=== PATIENT | female | born 1950 | race Caucasian/White ===

== ENCOUNTER 2020-08-03 14:54 | Inpatient (IN) | payer OTHER ==
[~2020-08-03] VITALS: Ht 149.9 cm; Wt 53.3 kg
[2020-08-03 14:56] VITALS: BP 126/57
[2020-08-03 15:29] LABS: HEMATOCRIT 52.3 % (37.0-47.0); HEMOGLOBIN 17.4 gm/dL (12.0-15.0); MCHC 33.3 g/dL (28.0-37.0); RBC 5.29 mil/uL (4.20-5.00); RDW 12.9 % (10.5-14.5); WBC 20.4 thou/uL (4.0-11.0)
[2020-08-03 16:06] LABS: ABSOLUTE NEUTROPHILS 18.4 thou/uL (1.4-8.2)
[2020-08-03 16:07] LABS: ANISOCYTOSIS 1+; LARGE PLATELETS OCCASIONAL; PLATELET COUNT 181 thou/uL (150-400)
[2020-08-03 16:41] LABS: ALBUMIN 4.3 g/dL (3.4-5.0); CALCIUM 10.7 mg/dL (8.5-10.1); CREATININE 0.9 mg/dL (0.6-1.0); POTASSIUM 3.1 mmol/L (3.5-5.1)
[2020-08-03 17:14] LABS: URINE BILIRUBIN 1+ (Negative); URINE BLOOD 3+ (Negative); URINE CLARITY SL CLOUDY; URINE COLOR YELLOW; URINE GLUCOSE-RANDOM* NEGATIVE (Negative); URINE KETONES 3+ (Negative); URINE LEUKOCYTES-REFLEX TRACE (Negative); URINE NITRITE-REFLEX NEGATIVE (Negative); URINE PROTEIN (DIPSTICK) 3+ (Negative); URINE SPECIFIC GRAVITY >= 1.030 (1.005-1.035); URINE UROBILINOGEN 0.2 E.U./dl (0.2-1.0)
[2020-08-03 17:15] LABS: ICTOTEST (BILI CONFIRMATORY) Negative (Negative)
[2020-08-03 17:25] LABS: BACTERIA-REFLEX 1-9 Few /HPF (None Seen); CASTS None Seen /LPF (None Seen); CRYSTALS None Seen /LPF (None Seen); SQUAMOUS 0-3 Few /LPF (0-3); URINE RBC 3-10 Few /HPF (0-2); URINE WBC-REFLEX 0-5 Rare /HPF (0-5)
[2020-08-03 17:56] LABS: HCO3 7.1 mmol/L (22.0-26.0); PO2 88.8 mmHg (80.0-100.0); sO2 95.7 % (92.0-98.0)
[2020-08-03 17:57] LABS: PCO2 16.5 mmHg (35.0-45.0); pH 7.251 (7.360-7.450)
--- NOTE | 2020-08-03 18:09 | NUR ---
SPOUSE CALLED AND STATED THAT PT DID NOT HAVE A FALL TODAY. HE STATES LAST FALL WAS 2 DAYS. SPOUSE STATED THAT PT WAS NOTABLY WEAKER WITH SOME SLURRED SPEECH TODAY. HE ALSO STATED THAT PT DOES DRINK 2 STRONG VODKA DRINKS EVERY DAY AND HAS POOR APPETITE.
[2020-08-04] VITALS (9 sets, daily range): BP systolic 115–149; BP diastolic 49–82
[2020-08-04 06:37] LABS: HEMATOCRIT 46.4 % (37.0-47.0); MCH 32.7 pg (26.0-34.0); MCHC 32.5 g/dL (28.0-37.0); MCV 100.6 fL (80.0-100.0); RBC 4.61 mil/uL (4.20-5.00); RDW 12.5 % (10.5-14.5); WBC 15.5 thou/uL (4.0-11.0)
[2020-08-04 06:47] LABS: HEMOGLOBIN 15.1 gm/dL (12.0-15.0)
[2020-08-04 06:52] LABS: ALBUMIN 3.2 g/dL (3.4-5.0); CALCIUM 9.3 mg/dL (8.5-10.1); CREATININE 0.9 mg/dL (0.6-1.0); POTASSIUM 3.1 mmol/L (3.5-5.1); TOTAL BILIRUBIN 0.8 mg/dL (0.2-1.0); TOTAL PROTEIN 6.2 g/dL (6.4-8.2)
--- NOTE | 2020-08-04 16:33 | 2DMMODE ---
[facility] [place] [address] 2 D/M-MODE ECHOCARDIOGRAM Name: IRIS BRADFORD Room #: 219-P ADM IN M.R.#: [id number] Admission: 08/03/20 Attend Phys: Alexandro Knight MD Discharge: Date of : 54 Report #: [id number] THIS REPORT FOR: cc: DELL - No family physician/PCP FAM - No family physician/PCP Alex Huang MD [facility] ~ APPROVED REPORT Study performed: 08/04/2020 11:16:19 EXAM: Comprehensive 2D, Doppler, and color-flow Echocardiogram Patient Location: ER BSA: 1.48 HR: 115 bpm Rhythm: Tachycardia Other Information Study Quality: Technically Difficult 2D Dimensions RVDd: 25.05 mm IVSd: 12.19 (7-11mm) LVOT Diam: 20.04 (18-24mm) LVDd: 31.52 mm PWd: 11.87 (7-11mm) Ascending Ao: 32.51 (22-36mm) LVDs: 27.66 (25-40mm) Left Atrium: 37.74 (27-40mm) Aortic Root: 28.02 mm LV Single Plane 4CH: 43.35 % LV Single Plane 2CH: 48.49 % Volumes Left Atrial Volume (Systole) Single Plane 4CH: 31.35 mL Single Plane 2CH: 22.67 mL Aortic Valve AoV Peak Sabas.: 1.45 m/s AO Peak Gr.: 9.30 mmHg LVOT Max P.60 mmHg LVOT Max V: 1.18 m/s REID Vmax: 2.56 cm2 Mitral Valve E/A Ratio: 1.[address] [facility] [place] [address] [place] [address] 2 D/M-MODE ECHOCARDIOGRAM Name: IRIS BRADFORD Room #: 219-P [facility] IN [facility].#: [id number] Admission: 08/03/20 Attend Phys: Alexandro Knight MD Discharge: Date of : 54 Report #: [id number] MV Decel. Time: 159.75 ms MV E Max Sabas.: 0.90 m/s MV A Sabas.: 0.80 m/s MV PHT: 46.33 ms Pulmonary Valve PV Peak Sabas.: 1.06 m/s PV Peak Gr.: 4.47 mmHg Pulmonary Vein P Vein S: 0.57 m/s P Vein A: 0.54 m/s P Vein D: 0.39 m/s P Vein A Dur.: 96.9 msec P Vein S/D Ratio: 1.46 Tricuspid Valve TR Peak Sabas.: 2.74 m/s TR Peak Gr.: 29.97 mmHg Left Ventricle The left ventricle is normal size. Mild concentric left ventricular hypertrophy. Left ventricular systolic function is mildly decreased. LVEF is 55%. Right Ventricle The right ventricle is normal size. The right ventricular systolic function is normal. Atria The left atrium size is normal. The right atrium size is normal. Aortic Valve The aortic valve is normal in structure. Mild aortic regurgitation. There is no aortic valvular stenosis. Mitral Valve The mitral valve is normal in structure. There is no mitral valve regurgitation noted. No evidence of mitral valve stenosis. Tricuspid Valve The tricuspid valve is normal in structure. Trace to mild tricuspid regurgitation. Estimated PAP 35 mmHg. Pulmonic Valve The pulmonary valve is normal in structure. Trace pulmonic regurgitation. [facility] [place] [address] [place] [address] 2 D/M-MODE ECHOCARDIOGRAM Name: IRIS BRADFORD Room #: 219-P ADM IN M.R.#: [id number] Admission: 08/03/20 Attend Phys: Alexandro Knight MD Discharge: Date of : 54 Report #: [id number] Great Vessels The aortic root is normal in size. IVC is normal in size and collapses >50% with inspiration. Pericardium There is no pericardial effusion. <Conclusion> The left ventricle is normal size. Mild concentric left ventricular hypertrophy. LVEF is 55%. The right ventricle is normal size. The left atrium size is normal. The aortic valve is normal in structure. Mild aortic regurgitation. There is no mitral valve regurgitation noted. Trace to mild tricuspid regurgitation. Estimated PAP 35 mmHg. The aortic root is normal in size. There is no pericardial effusion. <ELECTRONICALLY SIGNED> By: Alex Huang MD, FAC 08/04/20 [id number] Alex Huang MD, FAC /INF
--- NOTE | 2020-08-04 19:12 | NUR ---
PATEINT ARRIVED FROM ED, ALERT AND ORIENTED. ADMISON PROCESS COMPLETED WITH HELP OF HER . PATIENT BLIND, HER MOUTH IS DRY AND OLD BLOOD ALL OVER THE TEETH, TONGUE AND LIPS. MOUTH CARE PROVIDED. AND WILL CONTINUE WITH POC.
[2020-08-05] VITALS (8 sets, daily range): BP systolic 138–145; BP diastolic 53–861
[2020-08-05 03:53] LABS: ALBUMIN 2.5 g/dL (3.4-5.0); CALCIUM 8.8 mg/dL (8.5-10.1); CREATININE 0.7 mg/dL (0.6-1.0); PHOSPHORUS 0.7 mg/dL (2.6-4.7)
[2020-08-05 04:00] LABS: POTASSIUM 2.1 mmol/L (3.5-5.1)
[2020-08-05 09:27] LABS: HEMATOCRIT 40.1 % (37.0-47.0); HEMOGLOBIN 13.8 gm/dL (12.0-15.0); MCHC 34.3 g/dL (28.0-37.0); MCV 96.2 fL (80.0-100.0); RBC 4.17 mil/uL (4.20-5.00); RDW 12.5 % (10.5-14.5); WBC 9.9 thou/uL (4.0-11.0)
[2020-08-05 13:22] LABS: CALCIUM 9.1 mg/dL (8.5-10.1); CREATININE 0.7 mg/dL (0.6-1.0)
[2020-08-05 13:25] LABS: POTASSIUM 3.3 mmol/L (3.5-5.1)
--- NOTE | 2020-08-05 19:26 | NUR ---
PT CARE ASSUMED AT 0700. ASSESSMENTS CHARTED. MEDICATIONS CHARTED. RAC IV. LFA IV, PULLED BY PT. PT IS BLIND AND CONFUSED. MRI TOMORROW FOR L1 FX. PULLED RAC IV, LEADS AND GOWN AT SHIFT CHANGE. LEADS PLACED ON PT'S BACK. PILLS CRUSHED IN APPLESAUCE.
[2020-08-06 03:44] LABS: ALBUMIN 2.9 g/dL (3.4-5.0); CALCIUM 9.3 mg/dL (8.5-10.1); CREATININE 0.6 mg/dL (0.6-1.0); PHOSPHORUS 0.5 mg/dL (2.6-4.7)
[2020-08-06 03:46] LABS: POTASSIUM 2.8 mmol/L (3.5-5.1)
[2020-08-06 05:57] VITALS: BP 148/87
--- NOTE | 2020-08-06 07:20 | EKG ---
[address] [place] [address] ELECTROCARDIOGRAM REPORT Name: IRIS BRADFORD Room #: 219-P ADM IN M.R.#: [id number] Admission: 08/03/20 Attend Phys: Alexandro Knight MD Discharge: Date of : 54 Report #: [id number] [facility] ED Test Date: 2020-08-03 Test Time: 15:00:04 Pat Name: IRIS BRADFORD Department: Room: 219 Gender: F [employer] Professor: MAE : 1950 Requested By: Kalpesh Dia Order Number: [id number] MD: Jonathan Haile Measurements Intervals [place] Rate: 104 P: 38 IL: 140 QRS: -21 QRSD: 94 T: 90 QT: 367 QTc: 483 Interpretive Statements Sinus tachycardia Borderline left axis deviation No previous ECG available for comparison Electronically Signed On 08-06-2020 7:19:54 TOLL TICKET CLERK by Jonathan Haile [email or web address] <ELECTRONICALLY SIGNED> By: Jonathan Haile MD, [facility] 08/06/20 0719 1500 [facility] Jonathan Haile MD, FACC /EPI
--- NOTE | 2020-08-06 07:21 | EKG ---
[place] [address] [facility] [place] [place] [address] ELECTROCARDIOGRAM REPORT Name: IRIS BRADFORD Room #: 219-P ADM IN M.R.#: [id number] Admission: 08/03/20 Attend Phys: Alexandro Knight MD Discharge: Date of : 54 Report #: [id number] [facility] ED Test Date: 2020-08-03 Test Time: 16:09:54 Pat Name: IRIS BRADFORD Department: Room: 219 Gender: F Patient Portal Representative: karyn : 1950 Requested By: Kalpesh Dia Order Number: [id number] MD: Jonathan Haile Measurements Intervals [place] Rate: 91 P: 1 UT: 136 QRS: -25 QRSD: 88 T: 115 QT: 387 QTc: 477 Interpretive Statements Sinus rhythm Occasional atrial premature complexes Borderline left axis deviation Nonspecific T abnormalities, lateral leads Compared to ECG 08/03/2020 15:00:04 No significant changes found Electronically Signed On 08-06-2020 7:20:59 MAIL OFFICER by Jonathan Haile [email or web address] <ELECTRONICALLY SIGNED> By: Jonathan Haile MD, [facility] 08/06/2020 1609 160 Jonathan Haile MD, [facility] /EPI
[2020-08-06 08:00] VITALS: BP 126/68
--- NOTE | 2020-08-06 09:09 | NUR ---
ASSESSMENTS CHARTED, MEDS CHARTED GIVEN. PATIENT RESTING IN BED DURING SHIFT. C/O PAIN ONLY WHEN MOVED. POTASSIUM CRITICAL LOW THIS MORNING. REPLACEMENT POTASSIUM GIVEN CHARTED. PATIENT PULLING AND PICKING AT MEDICAL EQUIPMENT, PULLED OUT TWO IV'S AND DISMANTLED HER MORGAN CATH DURING THE SHIFT. FALL PRECAUTIONS IN PLACE DURING SHIFT.
[2020-08-06 11:30] VITALS: BP 151/90
[2020-08-06 11:36] LABS: INR 1.1; PROTIME 10.8 Seconds (9.3-11.4)
[2020-08-06 15:15] VITALS: BP 116/93
[2020-08-07 04:00] VITALS: BP 132/71
[2020-08-07 05:24] LABS: CALCIUM 8.5 mg/dL (8.5-10.1); CREATININE 0.7 mg/dL (0.6-1.0)
[2020-08-07 06:32] LABS: POTASSIUM 2.4 mmol/L (3.5-5.1)
[2020-08-07 07:38] VITALS: BP 125/70
--- NOTE | 2020-08-07 08:01 | NUR ---
SLEPT THROUGH MOST OF THE NIGHT. ALERT TO SELF, PLACE, AND SITUATION. FALL PRECAUTIONS ARE IN PLACE. MORGAN PRESENT. CAN BE CONFUSED AT TIMES. PT IS BLIND. POTASSIUM CRITICALLY LOW THIS MORNING, ORDERS GIVEN TO REPLACE. CONTINUE TO ASESS CLOSELY ACCORDING TO POC.
[2020-08-07 11:47] VITALS: BP 123/69
--- NOTE | 2020-08-07 14:58 | NUR ---
Met with patient and . Patient and both legally blind. Spouse reports hurt her foot some time ago. She was doing outpatient physical therapy but was not improving. She did not use any assistive device but would furniture walk in the home. Patient reports independent with adls and self care. All needs on one level except laundry in basement, spouse does laundry. Patient will need post acute care. Spouse requests referral to [facility]. They utlize [place] transport that assists with door to door transport.
[2020-08-07 15:01] VITALS: BP 119/58
--- NOTE | 2020-08-07 15:56 | NUR ---
FAXED REFERRAL TO [facility] RECEIVED CONFIRMATION AND LEFT MSG WITH SERENA IN ADM STILL NEED PT/OT NOTES FAXED ONCE AVAILABLE.
--- NOTE | 2020-08-07 17:32 | NUR ---
ASSESSMENT CHARTED - MEDS PER MAR - TENA DIET AND FLUIDS- PT REQUIRING TO BE FEED. TENA DIET AND FLUIDS. NO CO'S OF PAIN. PT TURNED. K+ THIS AM 2.4 GIVEN 80 MEQ OF K+ REPEAT 3.6. FLUIDS D/C'S ORDERED. NO CO'S AT THE PRESENT TIME.
[2020-08-07 19:32] VITALS: BP 133/59
[2020-08-08 05:11] VITALS: BP 146/46
[2020-08-08 06:14] LABS: CREATININE 0.5 mg/dL (0.6-1.0); POTASSIUM 3.2 mmol/L (3.5-5.1)
[2020-08-08 07:39] VITALS: BP 151/70
[2020-08-08 11:04] VITALS: BP 144/61
[2020-08-08 15:10] VITALS: BP 123/74
--- NOTE | 2020-08-08 15:39 | NUR ---
FAXED CLINICAL UPDATE TO [facility] FAXED TODAY'S PT/OT NOTES AND PHYLLIS NAVARRO SPOKE WITH SERENA IN ADM SHE RECEIVED UPDATE. DP TO FOLLOW.
--- NOTE | 2020-08-08 17:08 | NUR ---
ASSUMED CARE PT APPROX 1050. PT ALERT AND ORIENTED.VSS. DENIES PAIN. VSS. DENIES SOB. POTASSIUM LEVEL LOW THIS AM REPLACED PER ORDERS. PT UP IN CHAIR MAJORITY OF DAYS. PT LEGALLY BLIND ASSISTED WITH NEEDS REQUESTED. FAMILY VISITED WITH PT. PLAN FOR PT TO DC TO [facility] TOMORROW. PT CURRENTLY UP IN CHAIR. DENIES NEEDS AT THIS TIME. WILL CONT TO MONITOR AND FOLLOW POC. WILL PASS ON REPORT TO SOLIS RANGEL.
--- NOTE | 2020-08-08 17:22 | NUR ---
Patient accepted to [facility]. Phys reports dc tomorrow. Spouse agreeable however wants to sp with phys prior to transfer. Alerted phys.
[2020-08-08 20:30] VITALS: BP 143/84
[2020-08-09 04:45] VITALS: BP 154/75
[2020-08-09 07:45] VITALS: BP 137/76
--- NOTE | 2020-08-09 07:54 | NUR ---
ASSUMED CARE OF PT AT 1900HRS. PT AOX3 AND LETS NEEDS BE KNOWN. FALL PRECAUTION IN PLACE. PT IS LEGALLY BLIND AND IS A FEEDER. ASSESSMENT CHARTED. PT REQUIRED [facility]IST TO TRANSPORT. PT WAS ABLE TO GET COMFORTABLE AND SLEEP PART OF THE SHIFT. REPORT GIVEN TO ONCOMING RN.
[2020-08-09 08:42] VITALS: BP 137/76
[2020-08-09 08:56] LABS: CALCIUM 9.7 mg/dL (8.5-10.1); CREATININE 0.5 mg/dL (0.6-1.0); POTASSIUM 3.4 mmol/L (3.5-5.1)
--- NOTE | 2020-08-09 11:04 | NUR ---
Case discussed with the care team. Dc to SNF at [facility] today. They will arrange for a 2-2:30 stretcher van transport. The attending has spoken with the pt's spouse this am and all questions answered. All parties anticipating dc today. Dc community development planner to fax final orders and notified spouse of dc time. Nursing to call report. Chart copy in progress.
[2020-08-09] MEDS ORDERED: VITAMIN B-1100 M2 PO (11:21)
[2020-08-09] MEDS ORDERED: VITAMIN D325 MC1 PO (11:21)
[2020-08-09] MEDS ORDERED: METOPROLOL SUCC50 MG PO (11:21)
[2020-08-09 11:45] VITALS: BP 127/63
[2020-08-09 12:33] VITALS: BP 127/63
--- NOTE | 2020-08-09 12:34 | NUR ---
FAXED DISCHARGE ORDERS/SUMMARY AND [id number] TO [facility]. CALLED SERENA/INTAKE TO CONFIRM SHE RECEIVED. P [phone]; FAX [phone]
--- NOTE | 2020-08-09 17:15 | NUR ---
PT CARE ASSUMED AT 0700. ASSESSMENTS CHARTED. MEDICATIONS CHARTED. RFA IV. MORGAN. BED DALTON. SINUS RHYTHM. POOR APPETITE TODAY. PT TRANSFERRED TO [facility] AT 1400. TELEMETRY DC'D. IV DC'D.
== END 2020-08-09 14:40 | DRG 981 ==
LOC: ER 14:54 → EROBS 18:01 → 2N 18:01
PROVIDERS: Emergency Medicine; Hospitalist; Nuclear Medicine Nuclear Cardiology; Nurse Practitioner; Nurse Practitioner Adult Health; Nurse Practitioner Family; ADMIT Hospitalist; ATTEND Hospitalist
PROC: 0QS03ZZ Reposition Lumbar Vertebra, Percutaneous Approach (ICD-10-PCS; principal; 2020-08-06)
PROC: 0QU03JZ Supplement Lumbar Vertebra with Synthetic Substitute, Percutaneous Approach (ICD-10-PCS; principal; 2020-08-06)
DX: I21.4 Non-ST elevation (NSTEMI) myocardial infarction (principal); G92 Toxic encephalopathy; M48.56XA Collapsed vertebra, not elsewhere classified, lumbar region, initial encounter for fracture; E87.0 Hyperosmolality and hypernatremia; M62.82 Rhabdomyolysis; E87.2 Acidosis; N39.0 Urinary tract infection, site not specified; K56.7 Ileus, unspecified; S26.90XA Unspecified injury of heart, unspecified with or without hemopericardium, initial encounter; E86.0 Dehydration; Z20.822 Contact with and (suspected) exposure to COVID-19; Z60.2 Problems related to living alone; I10 Essential (primary) hypertension; R74.01 Elevation of levels of liver transaminase levels; D72.829 Elevated white blood cell count, unspecified; E87.6 Hypokalemia; F03.90 Unspecified dementia, unspecified severity, without behavioral disturbance, psychotic disturbance, mood disturbance, and anxiety; M81.0 Age-related osteoporosis without current pathological fracture; E55.9 Vitamin D deficiency, unspecified; E53.8 Deficiency of other specified B group vitamins; Z79.899 Other long term (current) drug therapy; W18.39XA Other fall on same level, initial encounter; Y93.89 Activity, other specified; Y92.89 Other specified places as the place of occurrence of the external cause; Y99.8 Other external cause status
CPT/HCPCS: 10081